=== PATIENT | male | born 1955 | race Two or more races ===

== ENCOUNTER → 2019-02-08 | Emergency (ER) | payer MEDICARE, OTHER ==
[~2019-02-08] VITALS: Ht 170.2 cm; Wt 75.7 kg
[~2019-02-08] MED LIST: TDAP [DIPH/PERTUSSIS/TET] 0.5 ML VIAL IM ONE
--- NOTE | 2019-02-08 08:59 | NUR ---
DC HOME INTRUCTION GIVEN AGREES TO CALL PMD IN 2 DAYS VERBALIZED UNDERSTANDING FOLLW UP PMD AND WOUND CHECK X 2 DAYS
[2019-02-08 09:00] VITALS: BP 134/89
== END | disposition home or self-care (01) ==
LOC: ER 08:22
DX: S71.112A Laceration without foreign body, left thigh, initial encounter (principal); I10 Essential (primary) hypertension; F10.10 Alcohol abuse, uncomplicated; F17.200 Nicotine dependence, unspecified, uncomplicated; Y90.9 Presence of alcohol in blood, level not specified; W26.0XXA Contact with knife, initial encounter; Y93.89 Activity, other specified; Y92.89 Other specified places as the place of occurrence of the external cause; Y99.8 Other external cause status
CPT/HCPCS: 90471; 90715; 99283; A6403

== ENCOUNTER 2019-12-20 10:25 | Emergency (ER) | payer MEDICARE, OTHER ==
[~2019-12-20] VITALS: Ht 170.2 cm; Wt 75.7 kg
[2019-12-20 10:32] VITALS: BP 167/113
== END 2019-12-20 10:46 | disposition home or self-care (01) ==
LOC: ER 10:25
DX: S61.011A Laceration without foreign body of right thumb without damage to nail, initial encounter (principal); I10 Essential (primary) hypertension; F17.200 Nicotine dependence, unspecified, uncomplicated; W26.8XXA Contact with other sharp object(s), not elsewhere classified, initial encounter; Y93.89 Activity, other specified; Y92.89 Other specified places as the place of occurrence of the external cause; Y99.8 Other external cause status
CPT/HCPCS: 12001; 99282; A6403

== ENCOUNTER 2020-12-12 17:05 | Inpatient (IN) | payer MEDICARE, OTHER ==
[~2020-12-12] VITALS: Ht 170.2 cm; Wt 86.7 kg
--- NOTE | 2020-12-12 17:39 | NUR ---
SEEN AND EXAMINED BY .
--- NOTE | 2020-12-12 18:13 | NUR ---
PT IS WHEELED TO CT SCAN [facility]IA [facility].
[2020-12-12] MEDS ORDERED: KETOROLAC TROMETHAMINE INJ 30 MG/ML VIAL ONE (18:14)
[2020-12-12] MEDS ORDERED: KETOROLAC TROMETHAMINE INJ 60 MG/2 ML VIAL IM ONE (18:30)
--- NOTE | 2020-12-12 19:54 | NUR ---
ER ALDEN RUST TALKING TO DR. TRUONG REGARDING PT.
[2020-12-12] MEDS ORDERED: IV NS 0.9% 1,000 ML BAG IV ONE (20:00)
--- NOTE | 2020-12-12 20:20 | NUR ---
MIHIR MULTANI NP PAGED FOR ADMISSION.
[2020-12-12 20:21] LABS: BASOPHILS # (AUTO) 0.1 K/uL (0.0-0.2); BASOPHILS % (AUTO) 0.6 % (0.0-2.0); EOSINOPHILS % (AUTO) 2.4 % (0.0-6.0); HEMATOCRIT 44 % (39-51); LYMPHOCYTES # (AUTO) 2.4 K/uL (0.8-4.8); LYMPHOCYTES % (AUTO) 25.1 % (20.0-44.0); MEAN CORPUSCULAR HGB CONC 34 g/dl (31.0-36.0); MEAN CORPUSCULAR VOLUME 87 fL (80-96); MONOCYTES # (AUTO) 0.9 K/uL (0.1-1.30); NEUTROPHILS # (AUTO) 6.1 K/uL (1.8-8.9); NEUTROPHILS % (AUTO) 62.9 % (43.0-81.0); PLATELET COUNT (AUTO) 292 K/uL (150-450); WHITE BLOOD COUNT (AUTO) 9.7 K/uL (4.3-11.0)
--- NOTE | 2020-12-12 20:21 | NUR ---
ELTONID SWABBED, SENT TO LAB.
[2020-12-12 20:28] LABS: CALCIUM, SERUM 8.6 mg/dL (8.5-10.1); CREATININE 1.1 mg/dL (0.6-1.3); POTASSIUM 3.9 mmol/L (3.5-5.1)
[2020-12-12] MEDS ORDERED: ACETAMINOPHEN 325 MG TABLET PO PRN (20:30)
[2020-12-12] MEDS ORDERED: MORPHINE SULFATE INJ 2 MG/ML DISP.SYRIN IV PRN (20:30)
[2020-12-12] MEDS ORDERED: ONDANSETRON HCL/PF 4 MG/2 ML VIAL IVP PRN (20:30)
[2020-12-12] MEDS ORDERED: ZOLPIDEM TARTRATE 5 MG TABLET PO PRN (20:30)
[2020-12-12 20:34] LABS: ALBUMIN 3.8 g/dL (3.4-5.0); BILIRUBIN,DIRECT 0.1 mg/dL (0.0-0.2); BILIRUBIN,TOTAL 0.2 mg/dL (0.2-1.0)
[2020-12-12] MEDS ORDERED: LOSA50TA39 PO (22:28)
[2020-12-12] MEDS ORDERED: IV D5/0.45 NACL 1,000 ML IV PRN (22:30)
--- NOTE | 2020-12-12 22:38 | NUR ---
REPORT GIVEN TO KOFI CHACON FOR ANTONIA
[2020-12-12 22:45] VITALS: BP 155/88
--- NOTE | 2020-12-12 22:45 | NUR ---
MS RN ADMITTING NOTES RECEIVED PATIENT FROM E. [facility], ACCOMPANIED BY SHANTA, PATIENT IS AWAKE, A&O X 4, NOT IN FORM OF ACUTE DISTRESS NOTED. ABLE TO TRANSFER SELF TO BED SAFELY. WITH SHORT LEG POSTERIOR SPLINT ON RIGHT LEG NOTED. NO COMPLAINTS OF PAIN AT THIS TIME. IV ACCESS ON LEFT AC, STARTED ON D5 1/2 NS X 75 CC/HR, INFUSING WELL, NO S/SX OF INFILTRATION NOTED. VITAL SIGNS TAKEN AND RECORDED FOLLOWS: TEMP 97.5, MN 69, RR 18, BP 155/88, OXYGEN SATURATION 98%. ORIENTED PATIENT TO UNIT. INSTRUCTED ON THE USE OF CALL LIGHT WHEN ASSISTANCE IS NEEDED. INSTRUCTED ON NPO POST MIDNIGHT. PATIENT VERBALIZED UNDERSTANDING OF INSTRUCTIONS GIVEN. PATIENT IS FOR SURGERY TOMORROW (12/13/2020) AT 10AM, FOR ACHILLES TENDON REPAIR, CONSENT SECURED AND CHECKLIST PARTIALLY DONE. WILL CONTINUE TO MONITOR PATIENT'S STATUS.
--- NOTE | 2020-12-13 06:34 | NUR ---
MS RN CLOSING NOTES PATIENT IS AWAKE, A&O X 4, NOT IN FORM OF ACUTE DISTRESS NOTED. WITH SHORT LEG POSTERIOR SPLINT ON RIGHT LEG. NO COMPLAINTS OF PAIN AT THIS TIME. IV ACCESS ON LEFT AC, D5 1/2 NS X 75 CC/HR, INFUSING WELL, NO S/SX OF INFILTRATION NOTED. REINFORCED NPO, SAFETY PRECAUTIONS OBSERVED AND MAINTAINED DURING THE SHIFT: BED ON LOWEST LOCKED POSITION, KEPT SIDE RAILS UP X 2, CALL LIGHT WITHIN EASY REACH. ALL NEEDS ATTENDED AND MET. WILL ENDORSE TO MORNING NURSE FOR ANTONIA.
[2020-12-13 06:47] LABS: BASOPHILS % (AUTO) 0.3 % (0.0-2.0); EOSINOPHILS % (AUTO) 2.1 % (0.0-6.0); HEMATOCRIT 42 % (39-51); HEMOGLOBIN 13.9 g/dL (13.5-17.5); LYMPHOCYTES # (AUTO) 1.6 K/uL (0.8-4.8); LYMPHOCYTES % (AUTO) 19.5 % (20.0-44.0); MEAN CORPUSCULAR HGB CONC 34 g/dl (31.0-36.0); MEAN CORPUSCULAR VOLUME 88 fL (80-96); MONOCYTES # (AUTO) 0.8 K/uL (0.1-1.30); MONOCYTES % (AUTO) 9.3 % (2.0-12.0); NEUTROPHILS # (AUTO) 5.6 K/uL (1.8-8.9); NEUTROPHILS % (AUTO) 68.8 % (43.0-81.0); PLATELET COUNT (AUTO) 255 K/uL (150-450); RED BLOOD CELL COUNT(AUTO) 4.74 MIL/uL (4.5-6.0); WHITE BLOOD COUNT (AUTO) 8.2 K/uL (4.3-11.0)
--- NOTE | 2020-12-13 07:04 | NUR ---
MS RN OPENING NOTES RECEIVE PT AWAKE IN BED AT THIS TIME. AOX4. NO SOB NOTED, NO S/O OF ANY ACUTE DISTRESS NOTED, NO C/O PAIN AT THIS TIME. NOTED WITH RIGHT IN A SPLINT. PT ABLE TO MAKE NEEDS KNOWN. IV ACCESS NOTED IN LAC # 20, INTACT, PATENT AND FLUSHING WELL. SAFETY PRECAUTIONS IN PLACE AND MAINTAINED AT ALL TIMES. BED IN LOWEST LOCKED POSITION, HOB ELEVATED, SIDE RAILS UP X2, CALL LIGHT AND TABLE WITHIN REACH. WILL CONTINUE TO MONITOR
[2020-12-13 07:24] LABS: CALCIUM, SERUM 7.7 mg/dL (8.5-10.1); CREATININE 0.8 mg/dL (0.6-1.3); MAGNESIUM 2.1 mg/dL (1.8-2.4); POTASSIUM 3.8 mmol/L (3.5-5.1)
[2020-12-13 08:00] VITALS: BP 151/92
[2020-12-13] MEDS ORDERED: BUPIVACAINE 0.5 % PF 150 MG/30 ML VIAL ONE (08:06)
[2020-12-13] MEDS ORDERED: VANCOMYCIN 1 GM VIAL ONE (08:06)
[2020-12-13] MEDS: NICOTINE PATCH (7MG) 7 MG PATCH.TD24 TD SCH (08:41)
[2020-12-13] MEDS ORDERED: LOSARTAN POTASSIUM 50 MG TABLET PO SCH (09:00)
[2020-12-13] MEDS ORDERED: HYDROMORPHONE INJ 2 MG/ML DISP.SYRIN ONE (09:54)
[2020-12-13] MEDS ORDERED: ROCURONIUM BROMIDE 50 MG/5 ML ONE (09:54)
[2020-12-13] MEDS ORDERED: CLONIDINE HCL 0.2MG/24H PTWK 1 EA PATCH TD SCH (10:00)
--- NOTE | 2020-12-13 12:54 | NUR ---
PT S/P RIGHT ACHILLES TENDON REPAIR WITH SPLINT/SHAILA WRAP. NO S/O OF BLEEDING NOTED. VITAL SIGNS AT THIS TIME, BP 151/92, HR 64, RR 18, T 97.8, SPO2 98%. WILL CONTINUE TO MONITOR
--- NOTE | 2020-12-13 13:00 | NUR ---
PT S/P RIGHT LEG ACHILLES TENDON REPAIR. PT ABLE TO WIGGLE TOES, RESPONSE TO TOUCH STIMULUS, PULSES PRESENT BILATERALLY, CAPILLARY REFILL <3SECONDS. WILL CONTINUE TO MONITOR
[2020-12-13] MEDS ORDERED: MORPHINE SULFATE INJ 4 MG/ML DISP.SYRIN IV PRN (14:00)
[2020-12-13 16:14] VITALS: BP 143/92
[2020-12-13 16:41] LABS: BILIRUBIN,URINE NEGATIVE (NEGATIVE); COLOR,URINE YELLOW (YELLOW); LEUKOCYTE ESTERASE ,URINE NEGATIVE (NEGATIVE); NITRITE, URINE NEGATIVE (NEGATIVE); PH,URINE 5.5 (5.0-8.0); PROTEIN,URINE NEGATIVE (NEGATIVE); UGLUCOSE NEGATIVE (NEGATIVE); UROBILINOGEN,URINE 0.2 EU/dL (0.2)
[2020-12-13] MEDS: Potassium Chloride 20 MEQ in IV D5/0.45 NACL 1,000 ML IV PRN (16:46)
[2020-12-13 17:15] LABS: BACTERIA,URINE None seen /HPF (None Seen); RBC,URINE 0-2 /HPF (0-2); SQUAMOUS EPITHELIAL CELL,UR 0-2 /HPF (None Seen); URIC ACID CRYSTALS,URINE Moderate /HPF (None Seen); WBC,URINE 0-2 /HPF (0-3)
[2020-12-13] MEDS: ANCEF 1 GM/50 ML D5W IV SCH (18:51)
--- NOTE | 2020-12-13 19:00 | NUR ---
RN CLOSING NOTES RECEIVED PT AWAKE IN BED, PT REMAINED STABLE THROUGHOUT SHIFT. ALL PATIENT CARE, NEEDS AND MEDICATIONS ADMINISTERED ANTICIPATED PER ORDER. KEPT CLEAN AND DRY. SAFETY PRECAUTIONS IN PLACE AND MAINTAINED AT ALL TIMES. BED IN LOWEST LOCKED POSITION, HOB ELEVATED, SIDE RAILS UP X2, CALL LIGHT AND TABLE WITHIN REACH. WILL ENDORSE TO COLLECTOR OF PORT NURSE FOR ANTONIA
--- NOTE | 2020-12-13 19:18 | NUR ---
NEUROVASCULAR CHECK PERFORMED AT THIS TIME, WITH OSWALDO HUSAIN AT SENIOR SUSTAINABILITY CONSULTANT. PT ABLE TO WIGGLE TOES, RESPONSE TO TOUCH STIMULUS, PULSES PRESENT BILATERALLY, CAPILLARY REFILL <3SECONDS. ENDORSED TO OSWALDO HUSAIN SENIOR SUSTAINABILITY CONSULTANT
--- NOTE | 2020-12-13 19:30 | NUR ---
RN OPENING NOTE PATIENT IN BED, AWAKE. A/O X 4. PATIENT IS ABLE TO MAKE NEEDS KNOWN. PATIENT TOLERATING ROOM AIR, NOT IN ANY APPARENT DISTRESS. PATIENT IS NOTED WITH A SPLINT ON THE RIGHT LOWER LEG, S/P ACHILLES HEEL TENDON REPAIR TODAY. NEURO CHECK DONE AT BEDSIDE, PATIENT REPORTS NO PAIN AT THIS TIME. SAFETY MEASURES IN PLACE; CALL LIGHT WITHIN REACH, BED IN LOCKED AND LOWEST POSITION, AND SIDE RAILS UP. ENCOURAGED PATIENT NOT TO GET UP ON HIS OWN. WILL MONITOR PATIENT CLOSELY.
[2020-12-13 20:00] VITALS: BP 141/79
[2020-12-14] MEDS: ANCEF 1 GM/50 ML D5W IV SCH ×2 (03:32→12:27)
[2020-12-14] MEDS: Potassium Chloride 20 MEQ in IV D5/0.45 NACL 1,000 ML IV PRN (05:39)
[2020-12-14] MEDS: HYDROCODONE/APAP 10/325MG TABLET PO PRN ×3 (05:42→15:17)
[2020-12-14 06:20] LABS: BASOPHILS % (AUTO) 0.1 % (0.0-2.0); EOSINOPHILS % (AUTO) 0.1 % (0.0-6.0); HEMATOCRIT 40 % (39-51); HEMOGLOBIN 13.6 g/dL (13.5-17.5); LYMPHOCYTES % (AUTO) 14.4 % (20.0-44.0); MEAN CORPUSCULAR HGB CONC 34 g/dl (31.0-36.0); MEAN CORPUSCULAR VOLUME 87 fL (80-96); MONOCYTES % (AUTO) 7.2 % (2.0-12.0); NEUTROPHILS # (AUTO) 10.8 K/uL (1.8-8.9); NEUTROPHILS % (AUTO) 78.2 % (43.0-81.0); PLATELET COUNT (AUTO) 257 K/uL (150-450); RED BLOOD CELL COUNT(AUTO) 4.62 MIL/uL (4.5-6.0); WHITE BLOOD COUNT (AUTO) 13.9 K/uL (4.3-11.0)
[2020-12-14 06:39] LABS: CALCIUM, SERUM 8.2 mg/dL (8.5-10.1); CREATININE 0.8 mg/dL (0.6-1.3); MAGNESIUM 2.2 mg/dL (1.8-2.4); PHOSPHORUS 3.9 mg/dL (2.5-4.9)
--- NOTE | 2020-12-14 06:42 | NUR ---
RN CLOSING NOTE PATIENT IN BED, EYES CLOSED, EASILY AROUSED. PATIENT IS ABLE TO MAKE NEEDS KNOWN. NO CHANGES IN THE PATIENT'S RIGHT FOOT STRENGTH, STILL ABLE TO WIGGLE HIS TOES, AND FEEL SENSATION. PATIENT COMPLAINED OF RIGHT FOOT PAIN 8/10, GAVE NORCO 10/325 AT 0542, PAIN LEVEL IS NOW 1/10 ON PAIN SCALE. RIGHT LOWER EXTREMITY HAS SHAILA WRAP AND SPLINT. IVF INFUSING WELL. SAFETY MEASURES MAINTAINED. ALL ORDERS CARRIED OUT. ALL NEEDS MET AND ATTENDED. NEUROVASCULAR CHECKS Q4 COMPLETED. WILL ENDORSE TO DAY SHIFT NURSE.
--- NOTE | 2020-12-14 07:30 | NUR ---
RN MS NOTES PT IN BED, ASLEEP, EASY TO AROUSE, ALERT AND ORIENTED, NO COMPLAINT OF PAIN AT THIS TIME, BREATHING PATTERN NORMAL, CALL LIGHT WITHIN REACH, IV FLUIDS INFUSING WELL,.
[2020-12-14 08:00] VITALS: BP 144/74
[2020-12-14] MEDS ORDERED: VALSARTAN 80 MG TABLET PO SCH (09:00)
[2020-12-14] MEDS: NICOTINE PATCH (7MG) 7 MG PATCH.TD24 TD SCH (09:28)
[2020-12-14 09:29] VITALS: BP 144/74
--- NOTE | 2020-12-14 16:05 | NUR ---
RN MS NOTES PT IN BED, AWAKE, ALERT AND ORIENTED, PAIN MEDICATION GIVEN ORDERED FOR RIGHT FOOT PAIN, NOT IN DISTRESS, CALL LIGHT WITHIN REACH, PT AWARE OF NON WEIGHT BEARING STATUS OF THE RIGHT FOOT, PT SEEN BY PHYSICAL THERAPIST, ADL INSTRUCTIONS GIVEN, PT PROVIDED WITH FWW TO TAKE HOME, PT SEEN BY DR. PRITCHETT, DISCHARGE ORDER GIVEN, DISCHARGE INSTRUCTIONS PROVIDED TO PT, PT TO SEEN DR. TRUONG WITHIN THE WEEK, VERBALIZED UNDERSTANDING, FOUNDRY ENGINEER ARRANGED FOR HOME HEALTH FOR PT, BELONGINGS ACCOUNTED FOR, IV LINES REMOVED, MINIMAL BLEEDING NOTED, PRESSURE DRESSING APPLIED, ASSISTED PT TO HOSPITAL LOBBY VIA WHEELCHAIR, PICKED UP BY DAUGHTER, LEFT VIA PRIVATE CAR IN STABLE CONDITION.
== END 2020-12-14 16:15 | disposition home health service (06) | DRG 502 ==
LOC: ER 17:05 → TRANSITION 21:52 → MED 22:20
PROVIDERS: ADMIT Nurse Practitioner Family; ATTEND Internal Medicine
PROC: 0LQN0ZZ Repair Right Lower Leg Tendon, Open Approach (ICD-10-PCS; principal; 2020-12-13)
DX: S86.011A Strain of right Achilles tendon, initial encounter (principal); I10 Essential (primary) hypertension; R73.9 Hyperglycemia, unspecified; S92.351A Displaced fracture of fifth metatarsal bone, right foot, initial encounter for closed fracture; Y93.89 Activity, other specified; X58.XXXA Exposure to other specified factors, initial encounter; Y93.9 Activity, unspecified; Y92.009 Unspecified place in unspecified non-institutional (private) residence as the place of occurrence of the external cause; F17.210 Nicotine dependence, cigarettes, uncomplicated; Z71.6 Tobacco abuse counseling; Z20.822 Contact with and (suspected) exposure to COVID-19
CPT/HCPCS: 36415; 71045-TC; 73610-TC; 73700-TC; 80048-TC; 80061-TC; 80076-TC; 81001; 83735-TC; 84100-TC; 85025-TC; 85730-TC; 86850-TC; 87081-TC; 93307-TC; 97112-TC; 97116-TC; 97530-TC; A4217; A6402; C9803; G0378; J0690; J1100; J1170; J1885; J2405; J2704; J3370; J3480; J3490; J7060